=== PATIENT | female | born 1935 | race Caucasian/White ===

== ENCOUNTER 2016-04-10 01:41 | Observation (INO) | payer OTHER, MEDICARE ==
[~2016-04-10] VITALS: Ht 176.5 cm; Wt 98.2 kg
[~2016-04-10 01:41] MED LIST: APRESOLINE25 MG PO; ARTIFICIAL TEAR15 M1 BOTH EYES; CARVEDILOL25 MG PO; COQ1050 MG PO; COREG12.5 M1 PO; GLUCOTROL10 MG PO; ISOSORBIDE DINI20 MG PO; JANUVIA100 MG PO; K-DUR20 MEQ PO; LASIX20 MG PO; OCUVITE TABLET1 EACH PO; PROTONIX40 MG PO; REQUIP5 MG PO; STOOL SOFTENER100 MG PO; SYNTHROID100 MCG PO; TRAZODONE HCL50 MG PO; VITAMIN D31000 UNIT PO
[2016-04-10 02:34] LABS: HEMATOCRIT 35.3 % (36.0-46.0); MCH 28.3 PG (29.0-34.0); MCHC 34.3 G/DL (30.0-36.0); MCV 82.7 FL (83-99); MEAN PLAT.VOLUME 10.2 uM^3 (9.5-12.4); PLATELET COUNT 246 K/uL (156-360); RBC DIS.WIDTH-CV 13.1 % (11.8-14.6); RBC DIS.WIDTH-SD 38.7 % (39-53); RED BLOOD COUNT 4.27 M/uL (3.80-5.20); WHITE BLOOD COUNT 9.7 K/uL (4.1-10.2)
[2016-04-10 02:40] LABS: CHLORIDE 99 mEq/L (99-109); INTER. NORMALIZED RATIO 1.1; POTASSIUM 4.3 mEq/L (3.7-5.4); PROTHROMBIN TIME 11.7 (9.2-11.2); PTT 27.8 (25-32); SODIUM 139 mEq/L (136-147)
[2016-04-10 02:42] LABS: GLUCOSE 78 mg/dL (70-99)
[2016-04-10 02:43] LABS: ANION GAP 15 MEQ/L (2-14)
[2016-04-10 02:44] LABS: TOTAL BILIRUBIN 0.3 mg/dL (0.0-1.0)
[2016-04-10 02:45] LABS: ALKALINE PHOSPHATASE 92 IU/L (3-129)
[2016-04-10 02:46] LABS: GFR ESTIMATE (CALCULATED) 20 mL/min/
[2016-04-10 02:47] LABS: UREA NITROGEN (BUN) 28 mg/dL (9-23)
[2016-04-10 02:49] LABS: LIPASE 23 U/L (1.0-51.0)
[2016-04-10 02:50] LABS: TROP-I INTERPRETATION NEGATIVE; TROPONIN-I < 0.01 ng/mL (0.0-0.30)
[2016-04-10] MEDS ORDERED: ROPINIROLE HCL5 MG PO (04:20)
[2016-04-10] MEDS ORDERED: LEVOTHYROXINE100 MCG PO (04:28)
[2016-04-10] MEDS ORDERED: PANTOPRAZOLE SO40 MG PO (04:29)
[2016-04-10] MEDS ORDERED: JANUVIA100 MG PO (04:29)
[2016-04-10] MEDS ORDERED: LASIX20 MG PO (04:30)
[2016-04-10] MEDS ORDERED: GLIPIZIDE XL10 MG PO (04:30)
[2016-04-10] MEDS ORDERED: VITAMIN D22000 UNIT PO (07:16)
[2016-04-10] MEDS ORDERED: OCUVITE TABLET1 EACH PO (07:16)
[2016-04-10] MEDS ORDERED: TRAZODONE HCL100 MG PO (07:16)
[2016-04-10] MEDS ORDERED: VISINE A.C300 DROP/1 BOTH EYES (07:21)
[2016-04-10 08:54] VITALS: BP 154/69
[2016-04-10 13:09] VITALS: BP 135/73
[2016-04-10 13:31] LABS: TROP-I INTERPRETATION NEGATIVE; TROPONIN-I < 0.01 ng/mL (0.0-0.30)
[2016-04-10 13:59] LABS: POINT-OF-CARE METER ID UU13113700
[2016-04-10 16:00] VITALS: BP 131/75
[2016-04-10 17:29] LABS: POINT-OF-CARE METER ID UU13113700
[2016-04-10 18:34] LABS: TROP-I INTERPRETATION NEGATIVE; TROPONIN-I < 0.01 ng/mL (0.0-0.30)
[2016-04-10 20:43] LABS: POINT-OF-CARE METER ID UU13113700
[2016-04-10 21:08] VITALS: BP 158/73
[2016-04-11] VITALS: BP 131/75
[2016-04-11 05:42] LABS: HEMATOCRIT 35.2 % (36.0-46.0); MCH 26.8 PG (29.0-34.0); MCHC 31.5 G/DL (30.0-36.0); MEAN PLAT.VOLUME 10.2 uM^3 (9.5-12.4); PLATELET COUNT 225 K/uL (156-360); RBC DIS.WIDTH-CV 13.2 % (11.8-14.6); RED BLOOD COUNT 4.14 M/uL (3.80-5.20); WHITE BLOOD COUNT 8.2 K/uL (4.1-10.2)
[2016-04-11 06:09] LABS: ANION GAP 6 MEQ/L (2-14); CHLORIDE 100 MEQ/L (99-109); GFR ESTIMATE (CALCULATED) 23 mL/min/; SAMPLE HEMOLYSIS CHECK 0; SAMPLE ICTERIC CHECK 0; SAMPLE LIPEMIA CHECK 0; SODIUM 135 MEQ/L (136-147); UREA NITROGEN (BUN) 26 mg/dL (9-23)
[2016-04-11 06:24] LABS: GLUCOSE 209 mg/dL (70-99); POTASSIUM 5.4 MEQ/L (3.7-5.4)
[2016-04-11 07:58] LABS: POINT-OF-CARE METER ID UU13113831
[2016-04-11 08:39] VITALS: BP 100/55
[2016-04-11] MEDS ORDERED: CEFTIN250 MG PO (11:23)
[2016-04-11 11:59] LABS: POINT-OF-CARE METER ID UU13113700
== END 2016-04-11 13:04 | disposition home or self-care (01) ==
LOC: EME → EDBD 01:41 → EME 01:41 → 5WEST 06:49 → EDOF 06:49 → 5WEST 08:48
PROVIDERS: Emergency Medicine; Hospitalist
PROC: 0HBLXZZ Excision of Left Lower Leg Skin, External Approach (ICD-10-PCS; principal; 2016-04-11)
DX: J40 Bronchitis, not specified as acute or chronic (principal); R07.9 Chest pain, unspecified; I25.10 Atherosclerotic heart disease of native coronary artery without angina pectoris; Z98.61 Coronary angioplasty status; I25.2 Old myocardial infarction; I83.228 Varicose veins of left lower extremity with both ulcer of other part of lower extremity and inflammation; L97.821 Non-pressure chronic ulcer of other part of left lower leg limited to breakdown of skin; I83.11 Varicose veins of right lower extremity with inflammation; E11.65 Type 2 diabetes mellitus with hyperglycemia; E11.22 Type 2 diabetes mellitus with diabetic chronic kidney disease; I12.9 Hypertensive chronic kidney disease with stage 1 through stage 4 chronic kidney disease, or unspecified chronic kidney disease; N18.4 Chronic kidney disease, stage 4 (severe); E03.9 Hypothyroidism, unspecified; R94.31 Abnormal electrocardiogram [ECG] [EKG]; G47.30 Sleep apnea, unspecified; R06.02 Shortness of breath; M54.2 Cervicalgia; Z90.5 Acquired absence of kidney; Z85.528 Personal history of other malignant neoplasm of kidney; Z96.651 Presence of right artificial knee joint
CPT/HCPCS: 71010; 78582; 80048; 80053; 82948; 83605; 83690; 83880; 84484; 85027; 85610; 85730; 87040; 93005; 99202; 99281; 99285; A9540; A9567; G0378; J0696; J1644; J1815; J1956; J2270; J7030; J7050; J7120; J7512

== ENCOUNTER 2016-05-12 21:27 | Inpatient (IN) | payer OTHER, MEDICARE ==
[~2016-05-12] VITALS: Ht 175.3 cm; Wt 96.7 kg
[~2016-05-12 21:27] MED LIST changes: +CEFTIN250 MG PO; +GLIPIZIDE XL10 MG PO; +LEVOTHYROXINE100 MCG PO; +PANTOPRAZOLE SO40 MG PO; +ROPINIROLE HCL5 MG PO; +TRAZODONE HCL100 MG PO; +VISINE A.C300 DROP/1 BOTH EYES; +VITAMIN D22000 UNIT PO
[2016-05-12 21:55] LABS: POINT-OF-CARE METER ID UU13113778
[2016-05-12 22:41] LABS: EOSINOPHIL (%) 1.2 % (0-5); EOSINOPHIL COUNT 0.1 K/uL (0-0.3); HEMATOCRIT 35.6 % (36.0-46.0); IMMATURE GRANULOCYTE (%) 0.2 % (0.0-0.7); IMMATURE GRANULOCYTE COUNT 0.2 K/uL; LYMPHOCYTE COUNT 0.3 K/uL (1.0-2.8); MCHC 33.7 G/DL (30.0-36.0); MONOCYTE (%) 5.5 % (3-12); MONOCYTE COUNT 0.5 K/uL (0-0.8); NEUTROPHIL (%) 89.5 % (45-76); NEUTROPHIL COUNT 8.9 K/uL (1.8-6.4); PLATELET COUNT 186 K/uL (156-360); RBC DIS.WIDTH-CV 13.8 % (11.8-14.6); RBC DIS.WIDTH-SD 40.6 % (39-53); RED BLOOD COUNT 4.29 M/uL (3.80-5.20); WHITE BLOOD COUNT 9.9 K/uL (4.1-10.2)
[2016-05-12 22:54] LABS: CHLORIDE 99 mEq/L (99-109); POTASSIUM 4.1 mEq/L (3.7-5.4); SODIUM 134 mEq/L (136-147)
[2016-05-12 22:56] LABS: GLUCOSE 316 mg/dL (70-99)
[2016-05-12 22:57] LABS: ANION GAP 10 MEQ/L (2-14)
[2016-05-12 23:00] LABS: GFR ESTIMATE (CALCULATED) 21 mL/min/
[2016-05-12 23:01] LABS: UREA NITROGEN (BUN) 26 mg/dL (9-23)
[2016-05-12 23:22] LABS: TROP-I INTERPRETATION NEGATIVE; TROPONIN-I 0.03 ng/mL (0.0-0.30)
[2016-05-12 23:54] LABS: INFLUENZA A VIRAL ANTIGEN POSITIVE; INFLUENZA B VIRAL ANTIGEN NEGATIVE
[2016-05-13 00:09] LABS: ADD MIUA? YES; BILIRUBIN NEGATIVE; BLOOD SMALL; COLOR YELLOW ((YELLOW)); GLUCOSE (STRIP) >=500; KETONES NEGATIVE; LEUKOCYTES NEGATIVE; NITRITE NEGATIVE; PROTEIN (STRIP) 30; SPECIFIC GRAVITY 1.014 (1.000-1.030); UROBILINOGEN 0.2 MG/DL (0.2-1.0)
[2016-05-13 00:13] LABS: BACTERIA RARE /HPF; EPITHELIAL CELLS RARE /HPF; MUCUS NONE SEEN /LPF; RED BLOOD CELLS 0-5 /HPF (0-5); UCUL ADDED? NO; WHITE BLOOD CELLS 0-5 /HPF (0-5)
[2016-05-13] MEDS ORDERED: LANTUS 3 M100 UNITS1 SC (00:36)
[2016-05-13] MEDS ORDERED: NOVOLOG PE100 UNITS/ SC (00:37)
[2016-05-13] MEDS ORDERED: PROAIR HFA8.5 GM IH (00:37)
[2016-05-13 08:53] LABS: POINT-OF-CARE METER ID UU14100415
[2016-05-13 09:38] LABS: HEMATOCRIT 34.5 % (36.0-46.0); MCH 28.1 PG (29.0-34.0); MEAN PLAT.VOLUME 10.4 uM^3 (9.5-12.4); PLATELET COUNT 164 K/uL (156-360); RBC DIS.WIDTH-CV 13.9 % (11.8-14.6); RBC DIS.WIDTH-SD 42.5 % (39-53); RED BLOOD COUNT 4.06 M/uL (3.80-5.20); WHITE BLOOD COUNT 7.4 K/uL (4.1-10.2)
[2016-05-13 09:51] LABS: CHLORIDE 103 mEq/L (99-109); SODIUM 136 mEq/L (136-147)
[2016-05-13 09:53] LABS: GLUCOSE 210 mg/dL (70-99)
[2016-05-13 09:54] LABS: ANION GAP 6 MEQ/L (2-14)
[2016-05-13 09:57] LABS: GFR ESTIMATE (CALCULATED) 22 mL/min/; UREA NITROGEN (BUN) 27 mg/dL (9-23)
[2016-05-13 11:16] LABS: POINT-OF-CARE METER ID UU14100415
[2016-05-13 16:22] VITALS: BP 127/58
[2016-05-13 17:33] LABS: POINT-OF-CARE METER ID UU13113831
[2016-05-13 20:00] VITALS: BP 132/58
[2016-05-13 21:58] LABS: POINT-OF-CARE METER ID UU13113700
[2016-05-14 00:17] VITALS: BP 152/83
[2016-05-14 04:11] VITALS: BP 124/65
[2016-05-14 09:45] VITALS: BP 121/79
[2016-05-14 11:18] LABS: HEMATOCRIT 33.9 % (36.0-46.0); MCH 28.4 PG (29.0-34.0); MCV 85.8 FL (83-99); PLATELET COUNT 160 K/uL (156-360); RBC DIS.WIDTH-CV 14.4 % (11.8-14.6); RBC DIS.WIDTH-SD 44.8 % (39-53); RED BLOOD COUNT 3.95 M/uL (3.80-5.20)
[2016-05-14 11:20] LABS: WHITE BLOOD COUNT 4.3 K/uL (4.1-10.2)
[2016-05-14 11:37] LABS: ALKALINE PHOSPHATASE 74 IU/L (3-129); ANION GAP 5 MEQ/L (2-14); CHLORIDE 100 MEQ/L (99-109); GFR ESTIMATE (CALCULATED) 25 mL/min/; GLUCOSE 219 mg/dL (70-99); POTASSIUM 4.5 MEQ/L (3.7-5.4); SAMPLE HEMOLYSIS CHECK 0; SAMPLE ICTERIC CHECK 0; SAMPLE LIPEMIA CHECK 0; SODIUM 133 MEQ/L (136-147); TOTAL BILIRUBIN 0.4 MG/DL (0.0-1.0); UREA NITROGEN (BUN) 26 mg/dL (9-23)
[2016-05-14 12:51] VITALS: BP 142/71
[2016-05-14] MEDS ORDERED: OSELTAMIVIR PHO30 MG PO (12:52)
== END 2016-05-14 14:10 | disposition home or self-care (01) | DRG 194 ==
LOC: EME 21:27 → EDOF 05-13 00:32 → 5WEST 05-13 11:57
PROVIDERS: Emergency Medicine; Hospitalist; Internal Medicine; Physician Assistant
DX: J10.1 Influenza due to other identified influenza virus with other respiratory manifestations (principal); N17.9 Acute kidney failure, unspecified; N18.4 Chronic kidney disease, stage 4 (severe); R09.02 Hypoxemia; J45.909 Unspecified asthma, uncomplicated; I12.9 Hypertensive chronic kidney disease with stage 1 through stage 4 chronic kidney disease, or unspecified chronic kidney disease; I25.10 Atherosclerotic heart disease of native coronary artery without angina pectoris; E11.22 Type 2 diabetes mellitus with diabetic chronic kidney disease; K21.9 Gastro-esophageal reflux disease without esophagitis; I87.8 Other specified disorders of veins; E03.9 Hypothyroidism, unspecified; E66.9 Obesity, unspecified; F17.210 Nicotine dependence, cigarettes, uncomplicated; Z96.659 Presence of unspecified artificial knee joint; I25.2 Old myocardial infarction; Z88.0 Allergy status to penicillin; Z90.5 Acquired absence of kidney; Z85.820 Personal history of malignant melanoma of skin; Z68.31 Body mass index [BMI] 31.0-31.9, adult
CPT/HCPCS: 36415; 71020; 71250; 80048; 80053; 80069; 81003; 82948; 83036; 83540; 83605; 83880; 84466; 84484; 85025; 85027; 87502; 93005; 94640; 94799; 99202; 99281; 99285; J1644; J1815; J7030

== ENCOUNTER 2016-06-10 01:36 | Emergency (ER) | payer OTHER, MEDICARE ==
[~2016-06-10] VITALS: Ht 175.3 cm; Wt 99.1 kg
[~2016-06-10 01:36] MED LIST changes: +LANTUS 3 M100 UNITS1 SC; +NOVOLOG PE100 UNITS/ SC; +OSELTAMIVIR PHO30 MG PO; +PROAIR HFA8.5 GM IH
[2016-06-10 03:20] LABS: HEMATOCRIT 38.5 % (36.0-46.0); MCV 84.8 FL (83-99); MEAN PLAT.VOLUME 10.8 uM^3 (9.5-12.4); PLATELET COUNT 222 K/uL (156-360); RBC DIS.WIDTH-CV 13.5 % (11.8-14.6); RBC DIS.WIDTH-SD 41.7 % (39-53); RED BLOOD COUNT 4.54 M/uL (3.80-5.20); WHITE BLOOD COUNT 6.7 K/uL (4.1-10.2)
[2016-06-10 03:29] LABS: CHLORIDE 100 mEq/L (99-109); POTASSIUM 4.5 mEq/L (3.7-5.4); SODIUM 136 mEq/L (136-147)
[2016-06-10 03:33] LABS: ANION GAP 11 MEQ/L (2-14)
[2016-06-10 03:35] LABS: GFR ESTIMATE (CALCULATED) 21 mL/min/
[2016-06-10 03:36] LABS: UREA NITROGEN (BUN) 32 mg/dL (9-23)
[2016-06-10 03:46] LABS: GLUCOSE 425 mg/dL (70-99)
[2016-06-10] MEDS ORDERED: CLINDAMYCIN HC300 MG PO (04:21)
[2016-06-10 05:36] VITALS: BP 158/91
== END 2016-06-10 05:41 | disposition home or self-care (01) ==
LOC: EME 01:36 → EDOF 03:47 → EME 03:47
PROVIDERS: Emergency Medicine
DX: L03.116 Cellulitis of left lower limb (principal); R60.0 Localized edema; E11.9 Type 2 diabetes mellitus without complications; J45.909 Unspecified asthma, uncomplicated; Z79.4 Long term (current) use of insulin
CPT/HCPCS: 80048; 85027; 93971; 99281; 99285; J3370; J7030

== ENCOUNTER 2016-06-14 16:15 | Inpatient (IN) | payer OTHER, MEDICARE ==
[~2016-06-14] VITALS: Ht 175.3 cm; Wt 98.1 kg
[~2016-06-14 16:15] MED LIST changes: +CLINDAMYCIN HC300 MG PO
[2016-06-14 17:00] LABS: EOSINOPHIL (%) 2.7 % (0-5); EOSINOPHIL COUNT 0.2 K/uL (0-0.3); HEMATOCRIT 36.8 % (36.0-46.0); IMMATURE GRANULOCYTE (%) 0.3 % (0.0-0.7); INSTRUMENT ABS NEUTROPHIL CT 4.3 K/uL; LYMPHOCYTE COUNT 1.2 K/uL (1.0-2.8); MCH 27.5 PG (29.0-34.0); MCHC 32.3 G/DL (30.0-36.0); MEAN PLAT.VOLUME 10.1 uM^3 (9.5-12.4); MONOCYTE (%) 6.6 % (3-12); MONOCYTE COUNT 0.4 K/uL (0-0.8); NEUTROPHIL (%) 69.8 % (45-76); NEUTROPHIL COUNT 4.3 K/uL (1.8-6.4); PLATELET COUNT 215 K/uL (156-360); RBC DIS.WIDTH-CV 13.6 % (11.8-14.6); RBC DIS.WIDTH-SD 42.3 % (39-53); RED BLOOD COUNT 4.33 M/uL (3.80-5.20); WHITE BLOOD COUNT 6.2 K/uL (4.1-10.2)
[2016-06-14 17:08] LABS: CHLORIDE 99 mEq/L (99-109); POTASSIUM 4.5 mEq/L (3.7-5.4)
[2016-06-14 17:09] LABS: SODIUM 134 mEq/L (136-147)
[2016-06-14 17:12] LABS: ANION GAP 10 MEQ/L (2-14)
[2016-06-14] MEDS ORDERED: CLINDAMYCIN HC300 MG PO (17:12)
[2016-06-14 17:14] LABS: GFR ESTIMATE (CALCULATED) 20 mL/min/
[2016-06-14 17:15] LABS: UREA NITROGEN (BUN) 34 mg/dL (9-23)
[2016-06-14] MEDS ORDERED: LIDOCAINE20 MG/1 M5 PO (17:15)
[2016-06-14 17:24] LABS: GLUCOSE 477 mg/dL (70-99)
[2016-06-14 19:00] VITALS: BP 181/86
[2016-06-14 22:41] LABS: POINT-OF-CARE METER ID UU14162508
[2016-06-15] VITALS: BP 134/66
[2016-06-15 04:00] VITALS: BP 131/66
[2016-06-15 06:46] LABS: EOSINOPHIL (%) 3.6 % (0-5); EOSINOPHIL COUNT 0.3 K/uL (0-0.3); HEMATOCRIT 34.8 % (36.0-46.0); IMMATURE GRANULOCYTE (%) 0.4 % (0.0-0.7); LYMPHOCYTE COUNT 1.5 K/uL (1.0-2.8); MCHC 31.9 G/DL (30.0-36.0); MCV 84.7 FL (83-99); MEAN PLAT.VOLUME 10.3 uM^3 (9.5-12.4); MONOCYTE (%) 8.3 % (3-12); MONOCYTE COUNT 0.6 K/uL (0-0.8); NEUTROPHIL (%) 67.7 % (45-76); PLATELET COUNT 207 K/uL (156-360); RBC DIS.WIDTH-CV 13.7 % (11.8-14.6); RBC DIS.WIDTH-SD 42.9 % (39-53); RED BLOOD COUNT 4.11 M/uL (3.80-5.20); WHITE BLOOD COUNT 7.4 K/uL (4.1-10.2)
[2016-06-15 07:08] LABS: ANION GAP 7 MEQ/L (2-14); CHLORIDE 102 MEQ/L (99-109); GFR ESTIMATE (CALCULATED) 24 mL/min/; SAMPLE HEMOLYSIS CHECK 0; SAMPLE ICTERIC CHECK 0; SAMPLE LIPEMIA CHECK 0; SODIUM 138 MEQ/L (136-147); UREA NITROGEN (BUN) 33 mg/dL (9-23)
[2016-06-15 07:15] LABS: GLUCOSE 102 mg/dL (70-99)
[2016-06-15 08:13] VITALS: BP 145/65
[2016-06-15 15:51] VITALS: BP 123/59
[2016-06-15 16:56] LABS: POINT-OF-CARE USER ID STWLMB34
[2016-06-15 20:33] VITALS: BP 134/68
[2016-06-15 21:40] LABS: POINT-OF-CARE USER ID AHSUCEG
[2016-06-16 00:55] VITALS: BP 153/67
[2016-06-16 04:15] VITALS: BP 140/64
[2016-06-16 08:00] VITALS: BP 145/62
[2016-06-16 12:17] LABS: POINT-OF-CARE METER ID UU14162508
[2016-06-16 17:18] LABS: POINT-OF-CARE METER ID UU14162508
[2016-06-16 20:00] VITALS: BP 122/74
[2016-06-16 23:23] VITALS: BP 142/74
[2016-06-17 04:00] VITALS: BP 132/78
[2016-06-17 06:30] LABS: POINT-OF-CARE METER ID UU14162508
[2016-06-17 07:58] LABS: BASOPHIL COUNT 0.1 K/uL (0-0.1); EOSINOPHIL (%) 3.1 % (0-5); EOSINOPHIL COUNT 0.2 K/uL (0-0.3); IMMATURE GRANULOCYTE (%) 0.3 % (0.0-0.7); INSTRUMENT ABS NEUTROPHIL CT 4.5 K/uL; LYMPHOCYTE COUNT 1.2 K/uL (1.0-2.8); MCH 27.5 PG (29.0-34.0); MCHC 32.3 G/DL (30.0-36.0); MCV 85.2 FL (83-99); MEAN PLAT.VOLUME 10.6 uM^3 (9.5-12.4); MONOCYTE (%) 7.2 % (3-12); MONOCYTE COUNT 0.5 K/uL (0-0.8); NEUTROPHIL (%) 70.3 % (45-76); NEUTROPHIL COUNT 4.5 K/uL (1.8-6.4); PLATELET COUNT 204 K/uL (156-360); RBC DIS.WIDTH-CV 13.9 % (11.8-14.6); RED BLOOD COUNT 4.11 M/uL (3.80-5.20); WHITE BLOOD COUNT 6.4 K/uL (4.1-10.2)
[2016-06-17 08:00] VITALS: BP 130/63
[2016-06-17 08:19] LABS: ANION GAP 11 MEQ/L (2-14); CHLORIDE 99 MEQ/L (99-109); GFR ESTIMATE (CALCULATED) 27 mL/min/; POTASSIUM 4.4 MEQ/L (3.7-5.4); SAMPLE HEMOLYSIS CHECK 0; SAMPLE ICTERIC CHECK 0; SAMPLE LIPEMIA CHECK 0; SODIUM 137 MEQ/L (136-147); UREA NITROGEN (BUN) 30 mg/dL (9-23)
[2016-06-17 08:20] LABS: GLUCOSE 197 mg/dL (70-99)
[2016-06-17] MEDS ORDERED: LASIX20 MG PO (11:36)
[2016-06-17] MEDS ORDERED: LANTUS 3 M100 UNITS1 SC (11:37)
[2016-06-17] MEDS ORDERED: AQUAPHOR W-NAT50 GM TP (11:40)
[2016-06-17] MEDS ORDERED: CLINDAMYCIN HC300 MG PO (11:40)
== END 2016-06-17 12:34 | disposition home or self-care (01) | DRG 603 ==
LOC: EME 16:15 → EDOF 17:48 → 2EAST 17:48
PROVIDERS: Family Medicine Sports Medicine; Physician Assistant
DX: L03.115 Cellulitis of right lower limb (principal); L03.116 Cellulitis of left lower limb; I25.10 Atherosclerotic heart disease of native coronary artery without angina pectoris; E78.5 Hyperlipidemia, unspecified; D64.9 Anemia, unspecified; E03.9 Hypothyroidism, unspecified; E86.0 Dehydration; R07.9 Chest pain, unspecified; I12.9 Hypertensive chronic kidney disease with stage 1 through stage 4 chronic kidney disease, or unspecified chronic kidney disease; N18.4 Chronic kidney disease, stage 4 (severe); E11.65 Type 2 diabetes mellitus with hyperglycemia; Z90.5 Acquired absence of kidney; K21.9 Gastro-esophageal reflux disease without esophagitis; R60.9 Edema, unspecified; E66.9 Obesity, unspecified; Z68.31 Body mass index [BMI] 31.0-31.9, adult
CPT/HCPCS: 80048; 80202; 82948; 83605; 83880; 85025; 87040; 93971; 99281; 99285; J0690; J1644; J1815; J3370; J7050

== ENCOUNTER 2016-07-09 18:48 | Observation (INO) | payer OTHER, MEDICARE ==
[~2016-07-09] VITALS: Ht 177.8 cm; Wt 100.8 kg
[~2016-07-09 18:48] MED LIST changes: +AQUAPHOR W-NAT50 GM TP; +LIDOCAINE20 MG/1 M5 PO
[2016-07-09 20:04] LABS: HEMATOCRIT 36.9 % (36.0-46.0); MCH 27.3 PG (29.0-34.0); MCHC 31.7 G/DL (30.0-36.0); MCV 86.2 FL (83-99); MEAN PLAT.VOLUME 10.4 uM^3 (9.5-12.4); PLATELET COUNT 203 K/uL (156-360); RBC DIS.WIDTH-CV 13.9 % (11.8-14.6); RBC DIS.WIDTH-SD 43.6 % (39-53); RED BLOOD COUNT 4.28 M/uL (3.80-5.20)
[2016-07-09 20:15] LABS: CHLORIDE 101 mEq/L (99-109); POTASSIUM 4.5 mEq/L (3.7-5.4); SODIUM 139 mEq/L (136-147)
[2016-07-09 20:17] LABS: GLUCOSE 374 mg/dL (70-99)
[2016-07-09 20:19] LABS: ANION GAP 10 MEQ/L (2-14)
[2016-07-09 20:21] LABS: GFR ESTIMATE (CALCULATED) 22 mL/min/
[2016-07-09 20:22] LABS: UREA NITROGEN (BUN) 33 mg/dL (9-23)
[2016-07-09 20:25] LABS: TROP-I INTERPRETATION NEGATIVE; TROPONIN-I < 0.01 ng/mL (0.0-0.30)
[2016-07-09] MEDS ORDERED: LASIX20 MG PO (22:03)
[2016-07-09] MEDS ORDERED: DESYREL100 MG PO (22:05)
[2016-07-09] MEDS ORDERED: PROTONIX40 MG PO (22:05)
[2016-07-09 23:29] LABS: INFLUENZA A VIRAL ANTIGEN NEGATIVE; INFLUENZA B VIRAL ANTIGEN NEGATIVE
[2016-07-10 02:16] VITALS: BP 158/67
[2016-07-10 02:45] LABS: HDL CHOLESTEROL 49 MG/DL (Desirable>=50); LDL CHOLESTEROL 121 mg/dL (Desirable<100); NON-HDL CHOLESTEROL 176 mg/dL (Desirable<160); SAMPLE HEMOLYSIS CHECK 0; SAMPLE ICTERIC CHECK 0; SAMPLE LIPEMIA CHECK 0; TOTAL CHOLESTEROL 225 mg/dL (Desirable<200); TRIGLYCERIDES 276 MG/DL (Normal: <150)
[2016-07-10 07:45] VITALS: BP 125/59
[2016-07-10 08:02] LABS: POINT-OF-CARE METER ID UU13113700
[2016-07-10 08:15] LABS: HEMATOCRIT 34.2 % (36.0-46.0); MCH 27.8 PG (29.0-34.0); MCHC 32.5 G/DL (30.0-36.0); MCV 85.7 FL (83-99); MEAN PLAT.VOLUME 10.6 uM^3 (9.5-12.4); PLATELET COUNT 191 K/uL (156-360); RBC DIS.WIDTH-CV 13.8 % (11.8-14.6); RED BLOOD COUNT 3.99 M/uL (3.80-5.20)
[2016-07-10 08:37] LABS: TROP-I INTERPRETATION NEGATIVE; TROPONIN-I 0.01 ng/mL (0.0-0.30)
[2016-07-10 08:58] LABS: ANION GAP 10 MEQ/L (2-14); CHLORIDE 103 MEQ/L (99-109); GFR ESTIMATE (CALCULATED) 24 mL/min/; GLUCOSE 230 mg/dL (70-99); POTASSIUM 4.2 MEQ/L (3.7-5.4); SAMPLE HEMOLYSIS CHECK 0; SAMPLE ICTERIC CHECK 0; SAMPLE LIPEMIA CHECK 0; SODIUM 140 MEQ/L (136-147); UREA NITROGEN (BUN) 31 mg/dL (9-23)
[2016-07-10 11:11] VITALS: BP 138/60
[2016-07-10 12:29] LABS: POINT-OF-CARE METER ID UU13113831
[2016-07-10 13:04] LABS: TROP-I INTERPRETATION NEGATIVE; TROPONIN-I 0.01 ng/mL (0.0-0.30)
[2016-07-10 15:28] VITALS: BP 146/64
[2016-07-10] MEDS ORDERED: ASPIR-LOW81 MG PO (15:54)
[2016-07-10 16:57] LABS: POINT-OF-CARE METER ID UU14162513
[2016-07-10 17:41] LABS: POINT-OF-CARE METER ID UU13113700
== END 2016-07-10 19:52 | disposition home or self-care (01) ==
LOC: EME 18:48 → EDOF 07-10 00:27 → 5WEST 07-10 02:01
PROVIDERS: Emergency Medicine; Hospitalist
DX: R07.89 Other chest pain (principal); J40 Bronchitis, not specified as acute or chronic; E11.9 Type 2 diabetes mellitus without complications; Z79.4 Long term (current) use of insulin; I13.10 Hypertensive heart and chronic kidney disease without heart failure, with stage 1 through stage 4 chronic kidney disease, or unspecified chronic kidney disease; N18.3 Chronic kidney disease, stage 3 (moderate); I25.10 Atherosclerotic heart disease of native coronary artery without angina pectoris; Z95.5 Presence of coronary angioplasty implant and graft; E03.9 Hypothyroidism, unspecified; D64.9 Anemia, unspecified; E66.9 Obesity, unspecified; E78.00 Pure hypercholesterolemia, unspecified; R60.0 Localized edema; Z85.528 Personal history of other malignant neoplasm of kidney; Z90.5 Acquired absence of kidney; G47.30 Sleep apnea, unspecified; E78.5 Hyperlipidemia, unspecified; I25.2 Old myocardial infarction; Z68.31 Body mass index [BMI] 31.0-31.9, adult
CPT/HCPCS: 71020; 80048; 80061; 82948; 84484; 85027; 87502; 93005; 94640; 99281; 99285; G0378; J1644; J1815

== ENCOUNTER 2016-07-23 16:09 | Inpatient (IN) | payer OTHER, MEDICARE ==
[~2016-07-23] VITALS: Ht 175.3 cm; Wt 99.1 kg
[~2016-07-23 16:09] MED LIST changes: +ASPIR-LOW81 MG PO; +DESYREL100 MG PO
[2016-07-23 17:01] LABS: MCH 28.4 PG (29.0-34.0); MCHC 32.9 G/DL (30.0-36.0); MCV 86.1 FL (83-99); MEAN PLAT.VOLUME 9.3 uM^3 (9.5-12.4); PLATELET COUNT 211 K/uL (156-360); RBC DIS.WIDTH-CV 13.8 % (11.8-14.6); RBC DIS.WIDTH-SD 43.2 % (39-53); RED BLOOD COUNT 3.95 M/uL (3.80-5.20); WHITE BLOOD COUNT 8.1 K/uL (4.1-10.2)
[2016-07-23 17:05] LABS: PCO2 42 mm Hg (35-45); PO2 76 mm Hg (80-100)
[2016-07-23 17:06] LABS: COMMENTS - BLOOD GASES A+C+; DEVICE RA; SITE RR
[2016-07-23 17:10] LABS: CHLORIDE 106 mEq/L (99-109); POTASSIUM 4.7 mEq/L (3.7-5.4); SODIUM 140 mEq/L (136-147)
[2016-07-23 17:12] LABS: GLUCOSE 186 mg/dL (70-99)
[2016-07-23 17:13] LABS: ANION GAP 11 MEQ/L (2-14)
[2016-07-23 17:14] LABS: TOTAL BILIRUBIN 0.3 mg/dL (0.0-1.0)
[2016-07-23 17:15] LABS: SERUM ETHYL ALCOHOL < 10 mg/dL
[2016-07-23 17:16] LABS: ALKALINE PHOSPHATASE 64 IU/L (3-129); GFR ESTIMATE (CALCULATED) 20 mL/min/
[2016-07-23 17:17] LABS: UREA NITROGEN (BUN) 35 mg/dL (9-23)
[2016-07-23] MEDS ORDERED: VITAMIN D33000 UNIT PO (18:11)
[2016-07-23 19:25] LABS: ADD MIUA? YES; BILIRUBIN NEGATIVE; BLOOD NEGATIVE; COLOR YELLOW ((YELLOW)); GLUCOSE (STRIP) 50; KETONES NEGATIVE; LEUKOCYTES NEGATIVE; NITRITE NEGATIVE; PROTEIN (STRIP) 100; SPECIFIC GRAVITY 1.014 (1.000-1.030); UROBILINOGEN 0.2 MG/DL (0.2-1.0)
[2016-07-23 19:30] LABS: BACTERIA RARE /HPF; EPITHELIAL CELLS RARE /HPF; MUCUS NONE SEEN /LPF; RED BLOOD CELLS 0-5 /HPF (0-5); WHITE BLOOD CELLS 0-5 /HPF (0-5)
[2016-07-23 19:44] LABS: AMPHETAMINE NEGATIVE (500 ng/mL); BARBITURATES NEGATIVE (200 ng/mL); BENZODIAZEPINES NEGATIVE (150 ng/mL); COCAINE NEGATIVE (150 ng/mL); INTERNAL CONTROLS VALID? YES; METHADONE NEGATIVE (200 ng/mL); METHAMPHETAMINE NEGATIVE (500 ng/mL); OPIATES (MORPHINE) NEGATIVE (100 ng/mL); OXYCODONE NEGATIVE (100 ng/mL); PHENCYCLIDINE NEGATIVE (25 ng/mL); PROPOXYPHENE NEGATIVE (300 ng/mL); THC CANNABINOIDS NEGATIVE (50 ng/mL); TRICYCLIC ANTIDEPRESSANTS NEGATIVE (300 ng/mL)
[2016-07-24] VITALS (8 sets, daily range): BP systolic 128–186; BP diastolic 70–96
[2016-07-24 08:17] LABS: POINT-OF-CARE METER ID UU13113831
[2016-07-24 08:47] LABS: TROP-I INTERPRETATION NEGATIVE; TROPONIN-I 0.01 ng/mL (0.0-0.30)
[2016-07-24] MEDS ORDERED: LO-DOSE ASPIRIN81 M2 PO (11:18)
[2016-07-24] MEDS ORDERED: LASIX40 MG PO (11:19)
[2016-07-24] MEDS ORDERED: MEDROL4 MG PO ×2 (11:20→11:21)
[2016-07-24 13:10] LABS: TROP-I INTERPRETATION NEGATIVE; TROPONIN-I < 0.01 ng/mL (0.0-0.30)
[2016-07-24 17:12] LABS: POINT-OF-CARE METER ID UU14162513
[2016-07-24 18:25] LABS: TROP-I INTERPRETATION NEGATIVE; TROPONIN-I 0.01 ng/mL (0.0-0.30)
[2016-07-25 04:00] VITALS: BP 159/69
[2016-07-25 06:55] LABS: EOSINOPHIL (%) 3.7 % (0-5); EOSINOPHIL COUNT 0.3 K/uL (0-0.3); HEMATOCRIT 35.9 % (36.0-46.0); IMMATURE GRANULOCYTE (%) 0.3 % (0.0-0.7); INSTRUMENT ABS NEUTROPHIL CT 4.6 K/uL; LYMPHOCYTE COUNT 1.4 K/uL (1.0-2.8); MCH 27.2 PG (29.0-34.0); MCHC 31.5 G/DL (30.0-36.0); MCV 86.3 FL (83-99); MEAN PLAT.VOLUME 10.6 uM^3 (9.5-12.4); MONOCYTE (%) 8.3 % (3-12); MONOCYTE COUNT 0.6 K/uL (0-0.8); NEUTROPHIL (%) 66.9 % (45-76); NEUTROPHIL COUNT 4.6 K/uL (1.8-6.4); PLATELET COUNT 209 K/uL (156-360); RBC DIS.WIDTH-SD 43.7 % (39-53); RED BLOOD COUNT 4.16 M/uL (3.80-5.20)
[2016-07-25 07:18] LABS: ALKALINE PHOSPHATASE 61 IU/L (3-129); ANION GAP 9 MEQ/L (2-14); CHLORIDE 104 MEQ/L (99-109); DIRECT BILIRUBIN 0.1 mg/dL (0.0-0.3); GFR ESTIMATE (CALCULATED) 25 mL/min/; POTASSIUM 4.3 MEQ/L (3.7-5.4); SAMPLE HEMOLYSIS CHECK 0; SAMPLE ICTERIC CHECK 0; SAMPLE LIPEMIA CHECK 0; SODIUM 140 MEQ/L (136-147); TOTAL BILIRUBIN 0.5 MG/DL (0.0-1.0); UREA NITROGEN (BUN) 27 mg/dL (9-23)
[2016-07-25 07:19] LABS: GLUCOSE 96 mg/dL (70-99)
[2016-07-25 08:01] VITALS: BP 152/72
[2016-07-25 08:07] LABS: POINT-OF-CARE METER ID UU14174225
[2016-07-25 11:31] VITALS: BP 160/80
[2016-07-25 15:51] VITALS: BP 166/71
[2016-07-25 19:48] VITALS: BP 126/72
[2016-07-26] VITALS (7 sets, daily range): BP systolic 125–153; BP diastolic 67–79
[2016-07-27 03:50] VITALS: BP 137/69
[2016-07-27 07:50] VITALS: BP 128/79
[2016-07-27 11:47] VITALS: BP 127/67
[2016-07-27 16:17] VITALS: BP 126/76
[2016-07-27 16:43] LABS: POINT-OF-CARE METER ID UU14188625
[2016-07-27 19:51] VITALS: BP 130/66
[2016-07-27 21:18] LABS: POINT-OF-CARE METER ID UU14188625
[2016-07-28] VITALS: BP 144/27
[2016-07-28 03:55] VITALS: BP 152/75
[2016-07-28 07:24] LABS: POINT-OF-CARE METER ID UU14174225
[2016-07-28 07:39] VITALS: BP 138/63
[2016-07-28 07:39] LABS: EOSINOPHIL (%) 3.6 % (0-5); EOSINOPHIL COUNT 0.2 K/uL (0-0.3); HEMATOCRIT 37.7 % (36.0-46.0); IMMATURE GRANULOCYTE (%) 0.3 % (0.0-0.7); INSTRUMENT ABS NEUTROPHIL CT 4.3 K/uL; LYMPHOCYTE COUNT 1.6 K/uL (1.0-2.8); MCH 27.1 PG (29.0-34.0); MCHC 31.8 G/DL (30.0-36.0); MCV 85.1 FL (83-99); MEAN PLAT.VOLUME 10.6 uM^3 (9.5-12.4); MONOCYTE (%) 7.6 % (3-12); MONOCYTE COUNT 0.5 K/uL (0-0.8); NEUTROPHIL (%) 64.1 % (45-76); NEUTROPHIL COUNT 4.3 K/uL (1.8-6.4); PLATELET COUNT 236 K/uL (156-360); RBC DIS.WIDTH-SD 43.3 % (39-53); RED BLOOD COUNT 4.43 M/uL (3.80-5.20); WHITE BLOOD COUNT 6.7 K/uL (4.1-10.2)
[2016-07-28 08:11] LABS: ANION GAP 10 MEQ/L (2-14); CHLORIDE 101 MEQ/L (99-109); GFR ESTIMATE (CALCULATED) 22 mL/min/; GLUCOSE 90 mg/dL (70-99); POTASSIUM 4.4 MEQ/L (3.7-5.4); SAMPLE HEMOLYSIS CHECK 0; SAMPLE ICTERIC CHECK 0; SAMPLE LIPEMIA CHECK 0; SODIUM 137 MEQ/L (136-147); UREA NITROGEN (BUN) 33 mg/dL (9-23)
[2016-07-28 11:26] VITALS: BP 113/55
[2016-07-28 15:32] VITALS: BP 139/67
[2016-07-28 16:23] LABS: POINT-OF-CARE METER ID UU14174225
[2016-07-28 19:37] VITALS: BP 129/62
[2016-07-28 21:58] LABS: POINT-OF-CARE METER ID UU14188625
[2016-07-29 00:01] VITALS: BP 140/68
[2016-07-29 04:00] VITALS: BP 130/60
[2016-07-29 07:34] VITALS: BP 117/56
[2016-07-29 07:38] LABS: POINT-OF-CARE METER ID UU14174225
[2016-07-29 15:35] VITALS: BP 167/70
[2016-07-29 16:30] LABS: POINT-OF-CARE METER ID UU14188625
[2016-07-29 20:14] VITALS: BP 138/62
[2016-07-29 21:35] LABS: POINT-OF-CARE METER ID UU14174225
[2016-07-29 23:45] VITALS: BP 122/55
[2016-07-30 07:13] LABS: EOSINOPHIL (%) 2.1 % (0-5); EOSINOPHIL COUNT 0.1 K/uL (0-0.3); HEMATOCRIT 37.7 % (36.0-46.0); IMMATURE GRANULOCYTE (%) 0.5 % (0.0-0.7); INSTRUMENT ABS NEUTROPHIL CT 4.2 K/uL; LYMPHOCYTE COUNT 1.7 K/uL (1.0-2.8); MCH 27.5 PG (29.0-34.0); MCHC 32.4 G/DL (30.0-36.0); MCV 84.9 FL (83-99); MEAN PLAT.VOLUME 10.4 uM^3 (9.5-12.4); MONOCYTE (%) 7.8 % (3-12); MONOCYTE COUNT 0.5 K/uL (0-0.8); NEUTROPHIL (%) 63.8 % (45-76); NEUTROPHIL COUNT 4.2 K/uL (1.8-6.4); PLATELET COUNT 237 K/uL (156-360); RBC DIS.WIDTH-CV 13.9 % (11.8-14.6); RBC DIS.WIDTH-SD 43.1 % (39-53); RED BLOOD COUNT 4.44 M/uL (3.80-5.20); WHITE BLOOD COUNT 6.5 K/uL (4.1-10.2)
[2016-07-30 07:35] LABS: ANION GAP 8 MEQ/L (2-14); CHLORIDE 101 MEQ/L (99-109); GFR ESTIMATE (CALCULATED) 22 mL/min/; GLUCOSE 105 mg/dL (70-99); POTASSIUM 4.8 MEQ/L (3.7-5.4); SAMPLE HEMOLYSIS CHECK 1; SAMPLE ICTERIC CHECK 0; SAMPLE LIPEMIA CHECK 0; SODIUM 137 MEQ/L (136-147); UREA NITROGEN (BUN) 37 mg/dL (9-23)
[2016-07-30 07:51] VITALS: BP 108/56
[2016-07-30 15:50] VITALS: BP 140/63
[2016-07-30] MEDS ORDERED: APRESOLINE25 MG PO (19:44)
[2016-07-30] MEDS ORDERED: AMLODIPINE BESYL5 MG PO (19:44)
[2016-07-30] MEDS ORDERED: CITALOPRAM HBR10 MG PO (19:45)
[2016-07-30 20:38] VITALS: BP 159/70
[2016-07-31 00:14] VITALS: BP 125/57
[2016-07-31 08:34] VITALS: BP 121/67
[2016-07-31 11:41] LABS: POINT-OF-CARE METER ID UU14174225
[2016-07-31 12:03] VITALS: BP 97/64
[2016-07-31 15:17] LABS: POINT-OF-CARE METER ID UU14188625
[2016-07-31 15:25] VITALS: BP 132/62
[2016-08-01 00:06] VITALS: BP 128/60
[2016-08-01 07:40] VITALS: BP 147/67
[2016-08-01 08:23] LABS: POINT-OF-CARE METER ID UU14188625
== END 2016-08-01 11:21 | disposition home or self-care (01) | DRG 638 ==
LOC: EME 16:09 → EDOF 07-24 00:16 → 5WEST 07-24 01:59 → 5SOUTH 07-24 14:54
PROVIDERS: Emergency Medicine; Family Medicine Sports Medicine; Hospitalist
DX: E11.65 Type 2 diabetes mellitus with hyperglycemia (principal); L03.90 Cellulitis, unspecified; N18.4 Chronic kidney disease, stage 4 (severe); F33.9 Major depressive disorder, recurrent, unspecified; M84.48XA Pathological fracture, other site, initial encounter for fracture; G47.33 Obstructive sleep apnea (adult) (pediatric); E11.22 Type 2 diabetes mellitus with diabetic chronic kidney disease; I13.10 Hypertensive heart and chronic kidney disease without heart failure, with stage 1 through stage 4 chronic kidney disease, or unspecified chronic kidney disease; E78.00 Pure hypercholesterolemia, unspecified; I77.1 Stricture of artery; I25.10 Atherosclerotic heart disease of native coronary artery without angina pectoris; E78.5 Hyperlipidemia, unspecified; J44.9 Chronic obstructive pulmonary disease, unspecified; I27.2 Other secondary pulmonary hypertension; D63.1 Anemia in chronic kidney disease; G25.81 Restless legs syndrome; R55 Syncope and collapse; F41.1 Generalized anxiety disorder; E03.9 Hypothyroidism, unspecified; J98.4 Other disorders of lung; E66.9 Obesity, unspecified; L40.9 Psoriasis, unspecified; E87.70 Fluid overload, unspecified; Z91.19 Patient's noncompliance with other medical treatment and regimen; I25.2 Old myocardial infarction; Z79.84 Long term (current) use of oral hypoglycemic drugs; Z85.528 Personal history of other malignant neoplasm of kidney; Z68.32 Body mass index [BMI] 32.0-32.9, adult; Z90.5 Acquired absence of kidney; Z87.891 Personal history of nicotine dependence; Z60.2 Problems related to living alone; Z98.61 Coronary angioplasty status; Z88.0 Allergy status to penicillin; Z83.3 Family history of diabetes mellitus; Z82.49 Family history of ischemic heart disease and other diseases of the circulatory system
CPT/HCPCS: 36600; 70450; 71250; 72125; 74176; 80048; 80053; 80076; 81003; 82803; 82948; 84484; 85025; 85027; 93306; 93880; 94640; 95819; 99202; 99281; 99285; G0480; J1644; J1815; J1940; J7030

== ENCOUNTER 2016-11-12 22:22 | Emergency (ER) | payer OTHER, MEDICARE ==
[~2016-11-12] VITALS: Ht 175.3 cm; Wt 99.8 kg
[~2016-11-12 22:22] MED LIST changes: +AMLODIPINE BESYL5 MG PO; +CITALOPRAM HBR10 MG PO; +LASIX40 MG PO; +LO-DOSE ASPIRIN81 M2 PO; +MEDROL4 MG PO; +VITAMIN D33000 UNIT PO
[2016-11-12 22:37] LABS: POINT-OF-CARE METER ID UU13113778
[2016-11-13 00:44] LABS: CARBON DIOXIDE (BICARBONATE) 31.5 MEQ/L (20-31); HEMATOCRIT 34.4 % (36.0-46.0); MCHC 33.4 G/DL (30.0-36.0); MCV 83.9 FL (83-99); MEAN PLAT.VOLUME 10.3 uM^3 (9.5-12.4); PLATELET COUNT 202 K/uL (156-360); RBC DIS.WIDTH-CV 13.1 % (11.8-14.6); RBC DIS.WIDTH-SD 39.9 % (39-53); WHITE BLOOD COUNT 6.8 K/uL (4.1-10.2)
[2016-11-13 01:00] LABS: CHLORIDE 97 mEq/L (99-109); POTASSIUM 4.2 mEq/L (3.7-5.4); SODIUM 133 mEq/L (136-147)
[2016-11-13 01:03] LABS: ANION GAP 9 MEQ/L (2-14)
[2016-11-13 01:04] LABS: TOTAL BILIRUBIN 0.4 mg/dL (0.0-1.0)
[2016-11-13 01:05] LABS: ALKALINE PHOSPHATASE 98 IU/L (3-129)
[2016-11-13 01:06] LABS: GFR ESTIMATE (CALCULATED) 22 mL/min/
[2016-11-13 01:07] LABS: UREA NITROGEN (BUN) 36 mg/dL (9-23)
[2016-11-13 01:09] LABS: LIPASE 13 U/L (1.0-51.0); TROP-I INTERPRETATION NEGATIVE; TROPONIN-I 0.01 ng/mL (0.0-0.30)
[2016-11-13 01:14] LABS: GLUCOSE 401 mg/dL (70-99)
[2016-11-13 03:15] LABS: ADD MIUA? YES; BILIRUBIN NEGATIVE; BLOOD NEGATIVE; COLOR YELLOW ((YELLOW)); GLUCOSE (STRIP) >=500; KETONES NEGATIVE; LEUKOCYTES TRACE; NITRITE NEGATIVE; PROTEIN (STRIP) 30; SPECIFIC GRAVITY 1.015 (1.000-1.030); UROBILINOGEN 0.2 MG/DL (0.2-1.0)
[2016-11-13 03:17] LABS: POINT-OF-CARE METER ID UU14100415
[2016-11-13 03:19] LABS: BACTERIA RARE /HPF; EPITHELIAL CELLS RARE /HPF; MUCUS NONE SEEN /LPF; RED BLOOD CELLS 0-5 /HPF (0-5); UCUL ADDED? YES
[2016-11-13] MEDS ORDERED: KEFLEX500 MG PO (03:27)
[2016-11-13 03:38] VITALS: BP 127/68
[2016-11-13 05:24] LABS: SAMPLE HEMOLYSIS CHECK 0; SAMPLE ICTERIC CHECK 0; SAMPLE LIPEMIA CHECK 0
== END 2016-11-13 03:39 | disposition home or self-care (01) ==
LOC: EME 22:22
PROVIDERS: Emergency Medicine
DX: E11.65 Type 2 diabetes mellitus with hyperglycemia (principal); N30.90 Cystitis, unspecified without hematuria; D64.9 Anemia, unspecified; N18.9 Chronic kidney disease, unspecified; E11.22 Type 2 diabetes mellitus with diabetic chronic kidney disease; Z79.4 Long term (current) use of insulin; J45.909 Unspecified asthma, uncomplicated; K21.9 Gastro-esophageal reflux disease without esophagitis; I48.91 Unspecified atrial fibrillation; I25.2 Old myocardial infarction; Z95.5 Presence of coronary angioplasty implant and graft; F41.9 Anxiety disorder, unspecified; Z96.651 Presence of right artificial knee joint; Z87.891 Personal history of nicotine dependence; Z88.0 Allergy status to penicillin
CPT/HCPCS: 71020; 80053; 81003; 82010; 82803; 82948; 83690; 84484; 85027; 87086; 93005; 99281; 99285; J7030

== ENCOUNTER 2017-03-31 09:16 | Emergency (ER) | payer OTHER, MEDICARE ==
[~2017-03-31] VITALS: Ht 175.3 cm; Wt 97.4 kg
[~2017-03-31 09:16] MED LIST changes: +KEFLEX500 MG PO
[2017-03-31 10:32] LABS: HEMATOCRIT 36.3 % (36.0-46.0); HEMOGLOBIN 12.1 G/DL (11.9-15.5); MCH 28.2 PG (29.0-34.0); MCHC 33.3 G/DL (30.0-36.0); MCV 84.6 FL (83-99); PLATELET COUNT 206 K/uL (156-360); RBC DIS.WIDTH-CV 13.6 % (11.8-14.6); RBC DIS.WIDTH-SD 41.6 % (39-53); RED BLOOD COUNT 4.29 M/uL (3.80-5.20); WHITE BLOOD COUNT 7.9 K/uL (4.1-10.2)
[2017-03-31 10:41] LABS: CHLORIDE 103 mEq/L (99-109); POTASSIUM 4.2 mEq/L (3.7-5.4); SODIUM 135 mEq/L (136-147)
[2017-03-31 10:42] LABS: GLUCOSE 213 mg/dL (70-99)
[2017-03-31 10:46] LABS: CREATININE 2.4 mg/dL (0.6-1.3); GFR ESTIMATE (CALCULATED) 21 mL/min/
[2017-03-31 10:47] LABS: UREA NITROGEN (BUN) 34 mg/dL (9-23)
[2017-03-31 11:25] LABS: ALBUMIN 3.5 g/dL (3.2-4.8)
[2017-03-31 11:28] LABS: TOTAL PROTEIN 7.1 g/dL (6.4-8.3)
[2017-03-31 11:29] LABS: TOTAL BILIRUBIN 0.2 mg/dL (0.0-1.0)
[2017-03-31 11:30] LABS: ALKALINE PHOSPHATASE 75 IU/L (3-129)
[2017-03-31 11:33] LABS: AST (GOT) 11 IU/L (2-34); DIRECT BILIRUBIN 0.1 mg/dL (0.0-0.3)
[2017-03-31 11:34] LABS: ALT (GPT) 12 IU/L (3-49)
[2017-03-31 11:43] LABS: TROP-I INTERPRETATION NEGATIVE; TROPONIN-I 0.01 ng/mL (0.0-0.30)
[2017-03-31] MEDS ORDERED: DOXYCYCLINE MO100 MG PO (13:14)
[2017-03-31 13:55] VITALS: BP 145/78
== END 2017-03-31 13:57 | disposition home or self-care (01) ==
LOC: EME 09:16
PROVIDERS: Emergency Medicine
DX: J20.9 Acute bronchitis, unspecified (principal); J44.1 Chronic obstructive pulmonary disease with (acute) exacerbation; J44.0 Chronic obstructive pulmonary disease with (acute) lower respiratory infection; Z87.01 Personal history of pneumonia (recurrent); Z87.891 Personal history of nicotine dependence; E11.9 Type 2 diabetes mellitus without complications; Z79.4 Long term (current) use of insulin; I25.2 Old myocardial infarction; K21.9 Gastro-esophageal reflux disease without esophagitis; F41.9 Anxiety disorder, unspecified; Z96.651 Presence of right artificial knee joint; Z95.5 Presence of coronary angioplasty implant and graft; Z85.9 Personal history of malignant neoplasm, unspecified; Z88.0 Allergy status to penicillin
CPT/HCPCS: 70360; 71020; 80048; 80076; 83880; 84484; 85027; 93005; 94640; 99281; 99285